=== PATIENT | female | born 1970 | race Hispanic/Latino ===

== ENCOUNTER 2017-07-14 16:51 | Emergency (ER) | payer SELFPAY ==
[~2017-07-14] VITALS: Ht 154.9 cm; Wt 68.2 kg
[~2017-07-14 16:51] MED LIST: FERROUS SULFAT325 MG OR; NEXIUM40 M1 PO; NO
[2017-07-14] MEDS ORDERED: DICLOFENAC SODI75 MG PO (17:17)
[2017-07-14] MEDS ORDERED: [UNRECOGNIZED DRUG - CODE] PO (17:17)
[2017-07-14 18:41] LABS: URINE BILIRUBIN - DIPSTICK NEGATIVE (NEGATIVE); URINE BLOOD DIPSTICK LARGE (NEGATIVE); URINE CLARITY CLEAR; URINE COLOR YELLOW; URINE GLUCOSE - DIPSTICK NEGATIVE (NEGATIVE); URINE KETONE NEGATIVE (NEGATIVE); URINE LEUK ESTERASE NEGATIVE (NEGATIVE); URINE NITRITE - DIPSTICK NEGATIVE (Negative); URINE PROTEIN - DIPSTICK NEGATIVE (NEG-TRACE); URINE SPECIFIC GRAVITY <=1.005; URINE UROBILINOGEN - DIPSTICK 0.2 E.U./dL (0.2)
[2017-07-14 19:02] LABS: HEMATOCRIT 28.1 % (37.0-47.0); IMMATURE GRANULOCYTES 0.4 % (0.0-1.0); MEAN CELL VOLUME 81.4 fL CALC (80.0-100.0); MEAN CORPUSCULAR HGB 26.1 pG CALC (26.0-32.0); NEUT# 5.18 thou/uL (2.00-7.15); RED BLOOD COUNT 3.45 mill/uL (4.20-5.60); RED CELL DISTRI WIDTH 20.2 % (11.5-15.5)
[2017-07-14 19:18] LABS: ALBUMIN 4.1 g/dL (3.2-5.0); ALKALINE PHOSPHATASE 57 u/l (38-126); ANION GAP 13 (6-22 (CALC)); BILIRUBIN, TOTAL 0.4 mg/dL (0.0-1.4); BUN 14 mg/dL (7-17); BUN/CREATININE RATIO 21 (12-20 (CALC)); CALCIUM 8.8 mg/dL (8.4-10.2); CARBON DIOXIDE 25 mmol/l (22-30); CHLORIDE 105 mmol/l (95-108); CREATININE 0.7 mg/dL (0.5-1.0); GFR > 60 ML/MIN (>=60 (CALC)); GFR FOR AFR.AMER. > 60 ML/MIN (>=60 (CALC)); GLUCOSE 84 mg/dL (65-105); POTASSIUM 3.9 mmol/l (3.5-5.1); SGOT/AST 20 u/l (14-36); SGPT/ALT 34 u/l (9-52); SODIUM 140 mmol/l (137-146); TOTAL PROTEIN 6.9 g/dL (6.3-8.2)
[2017-07-14 20:11] LABS: URINE RBC TNTC RBC/hpf (0-5); URINE SQUAMOUS EPITHELIAL CELL FEW EPI/hpf (0-FEW)
[2017-07-14 20:35] VITALS: BP 155/84
== END 2017-07-14 20:46 | disposition home or self-care (01) | DRG 761 ==
LOC: ED 16:51
PROVIDERS: Family Medicine
DX: N93.8 Other specified abnormal uterine and vaginal bleeding (principal)

== ENCOUNTER 2018-10-05 06:38 | Emergency (ER) | payer SELFPAY ==
[~2018-10-05] VITALS: Ht 154.9 cm; Wt 68.0 kg
[~2018-10-05 06:38] MED LIST changes: +DICLOFENAC SODI75 MG PO; +[UNRECOGNIZED DRUG - CODE] PO
[2018-10-05] MEDS ORDERED: ORAL CONTRACEPTIVES (07:08)
[2018-10-05 07:48] LABS: IMMATURE GRANULOCYTES 0.4 % (0.0-5.0); MEAN CORPUSCULAR HGB 19.5 pG CALC (26.0-32.0); MEAN CORPUSCULAR HGB CONC 28.7 g/L CALC (32.0-36.0); NEUT# 5.76 thou/uL (2.00-7.15); RED BLOOD COUNT 2.97 mill/uL (4.20-5.60); RED CELL DISTRI WIDTH 17.8 % (11.5-15.5)
[2018-10-05 07:55] LABS: HEMATOCRIT 20.2 % (37.0-47.0); HEMOGLOBIN 5.8 g/dl (12.0-16.0)
[2018-10-05 08:34] LABS: ACT PARTIAL THROMBO TIME 22.6 SECONDS (20.0-32.5); INTERNATIONAL NORMALIZED RATIO 0.9 RATIO (0.7-1.3); PROTHROMBIN TIME 9.4 SECONDS (9.0-12.5)
[2018-10-05 09:23] VITALS: BP 182/79
[2018-10-05 09:31] VITALS: BP 182/81
[2018-10-05 09:34] VITALS: BP 176/80
[2018-10-05 09:39] VITALS: BP 175/74
[2018-10-05 09:43] VITALS: BP 172/78
== END 2018-10-05 10:05 | disposition short-term general hospital (02) | DRG 761 ==
LOC: ED 06:38
PROVIDERS: Emergency Medicine
PROC: 30233N1 Transfusion of Nonautologous Red Blood Cells into Peripheral Vein, Percutaneous Approach (ICD-10-PCS; principal; 2018-10-05)
DX: N93.8 Other specified abnormal uterine and vaginal bleeding (principal); D50.0 Iron deficiency anemia secondary to blood loss (chronic)
CPT/HCPCS: P9016

== ENCOUNTER 2020-08-13 14:49 | Emergency (ER) | payer SELFPAY ==
[~2020-08-13] VITALS: Ht 154.9 cm; Wt 68.0 kg
[~2020-08-13 14:49] MED LIST changes: +ORAL CONTRACEPTIVES
[2020-08-13 16:40] LABS: IMMATURE GRANULOCYTES 0.3 % (0.0-5.0); MEAN CORPUSCULAR HGB 25.3 pG CALC (26.0-32.0); MEAN CORPUSCULAR HGB CONC 29.6 g/dL CAL (32.0-36.0); NEUT# 4.59 thou/uL (2.00-7.15); RED BLOOD COUNT 3.32 mill/uL (4.20-5.60); RED CELL DISTRI WIDTH 18.9 % (11.5-15.5)
[2020-08-13 16:46] LABS: HEMATOCRIT 28.4 % (37.0-47.0); HEMOGLOBIN 8.4 g/dl (12.0-16.0); MEAN CELL VOLUME 85.5 fL CALC (80.0-100.0)
[2020-08-13 16:54] LABS: ALBUMIN 4.2 g/dL (3.2-5.0); ANION GAP 12 (6-22 (CALC)); BILIRUBIN, TOTAL 0.3 mg/dL (0.0-1.4); BUN 11 mg/dL (7-17); BUN/CREATININE RATIO 16 (12-20 (CALC)); CARBON DIOXIDE 25 mmol/l (22-30); CHLORIDE 104 mmol/l (95-108); CREATININE 0.7 mg/dL (0.5-1.0); GFR > 60 ML/MIN (>=60 (CALC)); GFR FOR AFR.AMER. > 60 ML/MIN (>=60 (CALC)); POTASSIUM 4.2 mmol/l (3.5-5.1); SGOT/AST 31 u/l (14-36); SODIUM 137 mmol/l (137-146); TOTAL PROTEIN 7.2 g/dL (6.3-8.2)
[2020-08-13 17:06] LABS: ALKALINE PHOSPHATASE 89 u/l (38-126)
[2020-08-13] MEDS ORDERED: METFORMIN HCL1000 MG PO (18:31)
[2020-08-13] MEDS ORDERED: LEVOTHYROXIN100 MCG PO (18:32)
[2020-08-13] MEDS ORDERED: ALTOPREV40 MG PO (18:33)
[2020-08-13] MEDS ORDERED: LISINOPRIL20 MG PO (18:33)
[2020-08-13 19:55] VITALS: BP 132/77
== END 2020-08-13 20:01 | disposition home or self-care (01) | DRG 761 ==
LOC: ED 14:49
PROVIDERS: Family Medicine
DX: N92.0 Excessive and frequent menstruation with regular cycle (principal); E11.9 Type 2 diabetes mellitus without complications; I10 Essential (primary) hypertension; Z79.84 Long term (current) use of oral hypoglycemic drugs

== ENCOUNTER 2020-10-21 19:14 | Emergency (ER) | payer SELFPAY ==
[~2020-10-21] VITALS: Ht 154.9 cm; Wt 81.8 kg
[~2020-10-21 19:14] MED LIST changes: +ALTOPREV40 MG PO; +LEVOTHYROXIN100 MCG PO; +LISINOPRIL20 MG PO; +METFORMIN HCL1000 MG PO
[2020-10-21 20:37] LABS: URINE BILIRUBIN - DIPSTICK NEGATIVE (NEGATIVE); URINE BLOOD DIPSTICK SMALL (NEGATIVE); URINE CLARITY CLEAR; URINE COLOR YELLOW; URINE GLUCOSE - DIPSTICK NEGATIVE (NEGATIVE); URINE KETONE NEGATIVE (NEGATIVE); URINE LEUK ESTERASE NEGATIVE (Negative); URINE NITRITE - DIPSTICK NEGATIVE (Negative); URINE PROTEIN - DIPSTICK NEGATIVE (NEG-TRACE); URINE SPECIFIC GRAVITY 1.015; URINE UROBILINOGEN - DIPSTICK 0.2 E.U./dL (0.2)
[2020-10-21 20:38] LABS: IMMATURE GRANULOCYTES 0.3 % (0.0-5.0); MEAN CELL VOLUME 80.4 fL CALC (80.0-100.0); MEAN CORPUSCULAR HGB 25.7 pG CALC (26.0-32.0); NEUT# 9.04 thou/uL (2.00-7.15); RED BLOOD COUNT 4.28 mill/uL (4.20-5.60); RED CELL DISTRI WIDTH 17.9 % (11.5-15.5)
[2020-10-21 20:39] LABS: URINE RBC 0-2 RBC/hpf (0-5); URINE SQUAMOUS EPITHELIAL CELL FEW EPI/hpf (0-FEW); URINE WBC 0-2 WBC/hpf (0-5)
[2020-10-21 20:41] LABS: ALBUMIN 4.5 g/dL (3.2-5.0); ALKALINE PHOSPHATASE 108 u/l (38-126); AMYLASE 96 u/l (30-110); ANION GAP 14 (6-22 (CALC)); BILIRUBIN, TOTAL 0.4 mg/dL (0.0-1.4); BUN 16 mg/dL (7-17); BUN/CREATININE RATIO 21 (12-20 (CALC)); CARBON DIOXIDE 25 mmol/l (22-30); CHLORIDE 104 mmol/l (95-108); CREATININE 0.8 mg/dL (0.5-1.0); GFR > 60 ML/MIN (>=60 (CALC)); GFR FOR AFR.AMER. > 60 ML/MIN (>=60 (CALC)); HEMATOCRIT 34.4 % (37.0-47.0); LIPASE 128 u/l (23-300); SODIUM 139 mmol/l (137-146); TOTAL PROTEIN 7.9 g/dL (6.3-8.2)
[2020-10-21 20:42] LABS: SGOT/AST 190 u/l (14-36)
[2020-10-21 21:54] VITALS: BP 122/71
== END 2020-10-21 22:13 | disposition home or self-care (01) | DRG 392 ==
LOC: ED 19:14
PROVIDERS: Emergency Medicine
DX: R10.11 Right upper quadrant pain (principal); R10.12 Left upper quadrant pain; I10 Essential (primary) hypertension; E11.9 Type 2 diabetes mellitus without complications; Z79.84 Long term (current) use of oral hypoglycemic drugs

== ENCOUNTER 2023-05-14 09:40 | Emergency (ER) | payer SELFPAY ==
[2023-05-14] VITALS (7 sets, daily range): BP systolic 144–185; BP diastolic 62–95
[~2023-05-14] VITALS: Ht 154.9 cm; Wt 90.0 kg
[2023-05-14] MEDS ORDERED: TRAMADOL HYDROC50 M1 PO (11:17)
[2023-05-14] MEDS ORDERED: NAPROXEN500 MG PO (11:17)
[2023-05-14] MEDS ORDERED: GABAPENTIN300 M2 PO (11:29)
== END 2023-05-14 11:38 | disposition home or self-care (01) | DRG 556 ==
LOC: ED 09:40
DX: M25.562 Pain in left knee (principal); I10 Essential (primary) hypertension; E11.9 Type 2 diabetes mellitus without complications; E78.00 Pure hypercholesterolemia, unspecified; Z79.84 Long term (current) use of oral hypoglycemic drugs